=== PATIENT | female | born 1945 | race Caucasian/White ===

== ENCOUNTER → 2017-02-17 | Outpatient (CLI) | payer OTHER, MEDICARE ==
[~2017-02-17] MED LIST: GADOBUTROL 10 ML VIAL IVP ONE
== END ==
LOC: FIMAGING 15:18
PROVIDERS: ATTEND Internal Medicine
DX: G31.9 Degenerative disease of nervous system, unspecified (principal); G93.9 Disorder of brain, unspecified
CPT/HCPCS: 70553; A9585

== ENCOUNTER → 2017-04-14 | Outpatient (CLI) | payer OTHER, MEDICARE | LOC: BMCIMAGING 14:56 | PROVIDERS: ATTEND Internal Medicine Cardiovascular Disease | DX: I65.23 Occlusion and stenosis of bilateral carotid arteries (principal); I25.10 Atherosclerotic heart disease of native coronary artery without angina pectoris ==

== ENCOUNTER → 2017-09-06 | Outpatient (CLI) | payer OTHER, MEDICARE | LOC: FIMAGING 11:02 | PROVIDERS: ATTEND Internal Medicine | DX: M89.9 Disorder of bone, unspecified (principal); Z85.3 Personal history of malignant neoplasm of breast | CPT/HCPCS: 72190; 78306; A9503 ==

== ENCOUNTER → 2017-09-13 | Outpatient (CLI) | payer OTHER, MEDICARE ==
[~2017-09-13] MED LIST changes: -GADOBUTROL 10 ML VIAL IVP ONE; +IOPAMIDOL (ISOVUE-300) 100 ML BTL ONE
== END ==
LOC: FIMAGING 13:06
PROVIDERS: ATTEND Internal Medicine
DX: R93.7 Abnormal findings on diagnostic imaging of other parts of musculoskeletal system (principal); Z80.3 Family history of malignant neoplasm of breast; K57.30 Diverticulosis of large intestine without perforation or abscess without bleeding; M43.17 Spondylolisthesis, lumbosacral region; M48.07 Spinal stenosis, lumbosacral region
CPT/HCPCS: 72193; Q9967

== ENCOUNTER 2017-10-06 10:12 | Day surgery (SDC) | payer OTHER, MEDICARE ==
[2017-10-06] MEDS ORDERED: MIDAZOLAM 2 MG/2 ML VIAL ONE (10:25)
[2017-10-06] MEDS ORDERED: FLUMAZENIL 0.5 MG/5 ML MDV IVP ONE (10:25)
[2017-10-06] MEDS ORDERED: fentaNYL 100 MCG/2 ML INJ ONE (10:25)
[2017-10-06] MEDS ORDERED: NALOXONE HCL 0.4 MG/ML INJ ONE (10:25)
[2017-10-06] MEDS ORDERED: PROTAMINE SULFATE 50 MG/5 ML VIAL IVP PRN (10:28)
[2017-10-06] MEDS ORDERED: HEPARIN 10,000 UNIT/10 ML MDV (1,000 UNIT/ML) IVP PRN (10:28)
[2017-10-06] MEDS ORDERED: NALOXONE HCL 0.4 MG/ML INJ IVP PRN (10:28)
[2017-10-06] MEDS ORDERED: fentaNYL 100 MCG/2 ML INJ IVP PRN (10:28)
[2017-10-06] MEDS ORDERED: FLUMAZENIL 0.5 MG/5 ML MDV IVP PRN (10:28)
[2017-10-06] MEDS ORDERED: ALTEPLASE 2 MG VIAL IVP PRN (10:28)
[2017-10-06] MEDS ORDERED: MEPERIDINE 25 MG/ML SYR IVP PRN (10:28)
[2017-10-06] MEDS ORDERED: MIDAZOLAM 2 MG/2 ML VIAL IVP PRN (10:28)
[2017-10-06] MEDS ORDERED: GLUCAGON HCL 1 MG VIAL IVP PRN (10:28)
[2017-10-06] MEDS ORDERED: NS 1,000 ML IV SCH (10:30)
--- NOTE | 2017-10-06 11:06 | PDPROPOC ---
Sedation Plan of Care ASA Classification: ASA 2 Planned drugs: fentanyl, midazolam Mallampati Score: Class 3 Mallampati Reference Image:
--- NOTE | 2017-10-06 11:07 | PDGENHP ---
History & Physical Chief Complaint: suspected pelvic met History of Present Illness: 72F with know BrCA. 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 Relevant Physical Exam: RRR, nl WOB
[2017-10-06] MEDS ORDERED: BUPIVACAINE 0.25% 30 ML SDV ONE ×2 (11:27→13:05)
--- NOTE | 2017-10-06 12:25 | PDRADPN ---
Radiology Procedure Note Date of Procedure: 10/06/17 Radiologist: Noman García Anesthesia: IV Sedation Pre-op Diagnosis: pelvic BrCA met Post-op Diagnosis: same Indication: diagnostic Procedure: CT guided biopsy of anterior left iliac crest Finding(s): A 13G x 2.5 cm core was obtained from FDG avid portion of left iliac crest. Inf/Abcess present in the surg proc area at time of surgery?: No EBL: Minimal Complications: none Specimen(s): bone core submitted in formalin
[2017-10-06] MEDS ORDERED: LIDOCAINE 1% 300 MG/30 ML SDV ONE (13:08)
[2017-10-06 13:22] VITALS: BP 111/79
== END 2017-10-06 13:40 | disposition home or self-care (01) ==
LOC: FIMAGING 10:12
PROVIDERS: ATTEND Internal Medicine Hematology & Oncology
PROC: 07DR3ZX Extraction of Iliac Bone Marrow, Percutaneous Approach, Diagnostic (ICD-10-PCS; principal; 2017-10-06 12:30)
DX: C79.51 Secondary malignant neoplasm of bone (principal); C50.411 Malignant neoplasm of upper-outer quadrant of right female breast; Z17.0 Estrogen receptor positive status [ER+]; E78.5 Hyperlipidemia, unspecified; Z96.643 Presence of artificial hip joint, bilateral; Z96.653 Presence of artificial knee joint, bilateral
CPT/HCPCS: J1200; J2250; J2310; J3010

== ENCOUNTER → 2017-12-10 | Outpatient (CLI) | payer OTHER, MEDICARE ==
[~2017-12-10] MED LIST changes: +GADOBUTROL 10 ML VIAL IVP ONE; -IOPAMIDOL (ISOVUE-300) 100 ML BTL ONE
== END ==
LOC: FIMAGING 12:27
PROVIDERS: ATTEND Psychiatry & Neurology Neurology
DX: C79.51 Secondary malignant neoplasm of bone (principal); M50.30 Other cervical disc degeneration, unspecified cervical region; G95.20 Unspecified cord compression; M26.603 Bilateral temporomandibular joint disorder, unspecified
CPT/HCPCS: 70553; 72156; A9585

== ENCOUNTER → 2018-06-07 | Outpatient (CLI) | payer OTHER, MEDICARE | LOC: BMCIMAGING 10:27 | PROVIDERS: ATTEND Podiatrist Foot & Ankle Surgery | DX: M89.572 Osteolysis, left ankle and foot (principal); M15.4 Erosive (osteo)arthritis ==